=== PATIENT | male | born 1975 | race Caucasian/White ===

== ENCOUNTER 2019-07-14 15:17 | Emergency (ER) | payer OTHER ==
[~2019-07-14] VITALS: Ht 175.3 cm; Wt 65.8 kg
[~2019-07-14 15:17] MED LIST: AMITRIPTYLINE H75 M2 PO; BACTRIM DS TAB1 EACH PO; CLONAZEPAM 1 MG1 M1 PO; COLACE100 MG PO; DEPAKOTE ER500 MG PO; DEPAKOTE125 MG; DOXYCYCLINE 10100 MG PO; HYDROCODON-ACE1 EAC5; HYDROCODON-ACE1 EAC7 PO; HYDROCODONE-AP1 EAC6 PO; HYDROCODONE-APA1 TA1 PO; KEFLEX500 MG PO; LORAZEPAM 0.50.5 M1 PO; NAPROSYN500 MG PO; NAPROXEN DELAY500 M1 PO; NORCO 10-325 T1 EACH PO; NORCO 5-325 TA1 EAC1 PO; NORCO 5-325 TA1 EACH PO; PERCOCET 5-3251 EACH PO; PSYCH MEDS; REMERON 30 MG T30 M1; RESTORIL15 MG PO; RESTORIL30 MG PO; SEE NOTE; ULTRAM 50MG TAB50 MG PO; XANAX 1 MG TABLE1 MG PO; XANAX XR2 MG; XANAX XR2 MG PO; XANAX1 MG PO
[2019-07-14 16:04] LABS: HEMATOCRIT 39.5 % (42.0-52.0); HEMOGLOBIN 13.3 gm/dL (14.0-18.0); MCH 31.5 pg (26.0-34.0); MCHC 33.6 g/dL (28.0-37.0); MCV 93.8 fL (80.0-100.0); MPV 7.4 fl. (7.2-11.1); NUCLEATED RBCS 0 /100WBC; PLATELET COUNT* 310 thou/uL (150-400); RBC 4.21 mil/uL (4.50-6.00); RDW-CV 13.2 % (10.5-14.5); WBC 16.1 thou/uL (4.0-11.0)
[2019-07-14 16:16] LABS: CALCIUM 9.3 mg/dL (8.5-10.1); POTASSIUM 3.5 mmol/L (3.5-5.1)
[2019-07-14 16:21] LABS: ALBUMIN 2.4 g/dL (3.4-5.0); TOTAL BILIRUBIN 0.2 mg/dL (<0.1-1.0); TOTAL PROTEIN 7.5 g/dL (6.4-8.2)
[2019-07-14] MEDS ORDERED: KEFLEX500 M1 PO (16:22)
[2019-07-14] MEDS ORDERED: BACTRIM DS TAB1 EACH PO (16:22)
[2019-07-14 16:58] LABS: ABSOLUTE EOSINOPHILS 0.5 thou/uL (0.0-0.7); ABSOLUTE LYMPHOCYTES 1.8 thou/uL (0.8-5.3); ABSOLUTE NEUTROPHILS 12.9 thou/uL (1.6-8.1)
[2019-07-14 16:59] LABS: PLATELET ESTIMATE ADEQUATE
[2019-07-14 17:02] VITALS: BP 130/72
[2019-07-14 17:10] LABS: ESR (SEDRATE) 115 mm/hr (0-15)
[2019-07-15] MEDS ORDERED: HYDROCODON-ACE1 EAC5 PO (14:26)
[2019-07-15] MEDS ORDERED: XANAX2 MG PO (14:26)
[2019-07-15] MEDS ORDERED: TEMAZEPAM30 MG PO (14:27)
[2019-07-15] MEDS ORDERED: depakote PO (14:43)
== END 2019-07-14 17:04 | disposition left against medical advice (07) ==
LOC: M.ERS 15:17
PROVIDERS: Physician Assistant
DX: M00.862 Arthritis due to other bacteria, left knee (principal); F17.210 Nicotine dependence, cigarettes, uncomplicated; F90.9 Attention-deficit hyperactivity disorder, unspecified type; G89.29 Other chronic pain; Z86.14 Personal history of Methicillin resistant Staphylococcus aureus infection

== ENCOUNTER 2019-07-15 11:30 | Inpatient (IN) | payer OTHER ==
[~2019-07-15] VITALS: Ht 175.3 cm; Wt 68.6 kg
[~2019-07-15 11:30] MED LIST changes: +KEFLEX500 M1 PO
[2019-07-15 11:38] VITALS: BP 112/65
[2019-07-15 12:07] LABS: HEMOGLOBIN 11.9 gm/dL (14.0-18.0)
[2019-07-15 12:10] LABS: HEMATOCRIT 34.7 % (42.0-52.0); MCH 32.1 pg (26.0-34.0); MCHC 34.5 g/dL (28.0-37.0); MCV 93.2 fL (80.0-100.0); MPV 7.2 fl. (7.2-11.1); NUCLEATED RBCS 0 /100WBC; PLATELET COUNT* 368 thou/uL (150-400); RBC 3.72 mil/uL (4.50-6.00); RDW-CV 12.9 % (10.5-14.5); WBC 15.9 thou/uL (4.0-11.0)
[2019-07-15 12:14] LABS: CALCIUM 9.5 mg/dL (8.5-10.1)
[2019-07-15 12:15] LABS: POTASSIUM 4.6 mmol/L (3.5-5.1)
[2019-07-15 12:19] LABS: ALBUMIN 2.3 g/dL (3.4-5.0); TOTAL BILIRUBIN 0.2 mg/dL (<0.1-1.0); TOTAL PROTEIN 7.2 g/dL (6.4-8.2)
[2019-07-15 12:38] LABS: ABSOLUTE LYMPHOCYTES 1.1 thou/uL (0.8-5.3); ABSOLUTE NEUTROPHILS 13.8 thou/uL (1.6-8.1); ANISOCYTOSIS 1+; PLATELET ESTIMATE ADEQUATE; POIKILOCYTOSIS 1+
[2019-07-15 13:17] LABS: ESR (SEDRATE) 114 mm/hr (0-15)
[2019-07-15 13:22] VITALS: BP 97/55
[2019-07-15 13:30] VITALS: BP 92/57
[2019-07-15] MEDS ORDERED: HYDROCODON-ACE1 EAC5 PO (14:26)
[2019-07-15] MEDS ORDERED: XANAX2 MG PO (14:26)
[2019-07-15] MEDS ORDERED: TEMAZEPAM30 MG PO (14:27)
[2019-07-15] MEDS ORDERED: depakote PO (14:43)
[2019-07-15 16:00] VITALS: BP 102/57
[2019-07-15 19:30] VITALS: BP 110/60
[2019-07-16 00:51] LABS: AMP/METHAMP POSITIVE (Negative); BARBITURATES Negative (Negative); BENZODIAZEPINES POSITIVE (Negative); COCAINE Negative (Negative); METHADONE Negative (Negative); OPIATES POSITIVE (Negative); PCP Negative (Negative); THC POSITIVE (Negative)
[2019-07-16 04:29] LABS: HEMATOCRIT 32.3 % (42.0-52.0); HEMOGLOBIN 11.1 gm/dL (14.0-18.0); MCHC 34.3 g/dL (28.0-37.0); MPV 6.8 fl. (7.2-11.1); RBC 3.47 mil/uL (4.50-6.00); WBC 13.7 thou/uL (4.0-11.0)
[2019-07-16 04:40] LABS: CALCIUM 8.7 mg/dL (8.5-10.1); CREATININE 1.1 mg/dL (0.6-1.3); POTASSIUM 4.3 mmol/L (3.5-5.1)
[2019-07-16 07:30] VITALS: BP 107/53
[2019-07-16 09:46] VITALS: BP 107/53
[2019-07-16 14:15] VITALS: BP 120/69
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
--- NOTE | 2019-07-18 15:07 | PATH ---
[address] [address] PATHOLOGY RPT PROCEDURE Name: LOREE HAGEN Room: [address] IN M.R.#: [id number] Admission: 07/15/19 Date of : 79 Discharge: 07/16/19 Report #: [id number] Path Case #: [id number] [facility] Accession Number: [id number] . 01 Material submitted: . leg - SUBCUTANEOUS TISSUE LEFT LEG. Modifiers: left . 01 Clinical history: . Left leg abscess . 02 Diagnosis: Subcutaneous tissue: - Predominantly fibrinopurulent debris and scant benign fibrovascular/fibrofatty connective tissue with extensive acute inflammation. (PARRIS:karlee; 07/18/2019) [facility] 07/18/2019 1241 Local . 02 Electronically signed: . John Salgado MD, Pathologist NPI- [id number] . 01 Gross description: . The specimen is received in formalin, labeled "[place], subcutaneous tissue". Received is a segment of dusky red-brown soft tissue measuring 2.4 x 2.0 x 0.8 cm in greatest dimensions. Sectioning reveals pale kamara to red-kamara cut surfaces. The specimen is submitted representatively in cassette A1. ([facility]; 07/17/2019) [facility] 07/17/2019 0854 Local . 02 Pathologist provided ICD-10: L08.9 . 02 CPT . 593056 Specimen Comment: A courtesy copy of this report has been sent to [phone] Specimen Comment: [phone] Specimen Comment: Report sent to and Dr.DE VIKTOR DIGGS Performed at: [address], [place], [place] [id number] MD Dheeraj Bryant MD Phone: [phone] Performed at: 02 [facility] [address], [place], [place] [id number] MD John Salgado MD Phone: [phone]
== END 2019-07-16 16:17 | disposition left against medical advice (07) | DRG 501 ==
LOC: M.ERS 11:30 → M.TBA-ER 12:26 → M.3W 12:26
PROVIDERS: Nurse Practitioner Family; ADMIT Family Medicine
PROC: 0JDM0ZZ Extraction of Left Upper Leg Subcutaneous Tissue and Fascia, Open Approach (ICD-10-PCS; principal; 2019-07-16)
PROC: 0J9P0ZZ Drainage of Left Lower Leg Subcutaneous Tissue and Fascia, Open Approach (ICD-10-PCS; principal; 2019-07-16)
DX: M00.9 Pyogenic arthritis, unspecified (principal); L03.116 Cellulitis of left lower limb; M54.9 Dorsalgia, unspecified; F12.90 Cannabis use, unspecified, uncomplicated; G89.4 Chronic pain syndrome; F32.9 Major depressive disorder, single episode, unspecified; F41.9 Anxiety disorder, unspecified; F90.9 Attention-deficit hyperactivity disorder, unspecified type; G40.909 Epilepsy, unspecified, not intractable, without status epilepticus; Z86.14 Personal history of Methicillin resistant Staphylococcus aureus infection; Z79.899 Other long term (current) drug therapy